=== PATIENT | female | born 1995 | race Caucasian/White ===

== ENCOUNTER 2022-10-01 02:08 | Emergency (ER) | payer BC, SELFPAY ==
[2022-10-01 02:12] VITALS: BP 161/96; PULSE 124; RESP 18; TEMP 37.5; O2SAT 95
--- NOTE | 2022-10-01 02:40 | ED.DENTAL ---
HPI - Dental/Oral General Chief complaint: Dental/Oral Stated complaint: tooth pain Time Seen by Provider: 10/01/22 02:14 Source: patient Mode of arrival: ambulatory Limitations: no limitations History of Present Illness HPI Narrative: 27-year-old female presents today with complaints of right lower dental pain that started about 6 days ago. Patient states it started at right facial pain she saw her primary care provider who said it was TMJ. Pain significantly got worse yesterday to today so she decided to come in. Patient states she is able to drink fluids and soft foods. Denies fever but states she did have some sweats. Denies nausea, vomiting, chills, body aches. Upon assessment patient heart rate 99, and oral temp was 98.9. Related Data Allergies Allergy/AdvReac Type Severity Reaction Status Date / Time No Known Allergies Allergy Unknown Verified 10/01/22 02:15 Review of Systems Review of Systems: CONSTITUTIONAL: Denies fever, chills, or sweats. EYES: Denies visual changes, redness, or discharge. ENT: Right lower dental pain. Denies rhinorrhea, congestion, sore throat, or otalgia. CARDIOVASCULAR: Denies chest pain, palpitations, or edema. RESPIRATORY: Denies cough or dyspnea. GASTROINTESTINAL: Denies abdominal pain, nausea, vomiting, or diarrhea. GENITOURINARY: Denies dysuria or hematuria. Exam Narrative: GENERAL: Well-appearing, well-nourished, and in no acute distress. HEAD: Normocephalic, atraumatic. EYES: PERRLA and EOMI. ENT: Nares clear, no rhinorrhea or epistaxis. Mucous membranes moist. Oropharynx without tonsillar hypertrophy exudate or other lesions. Bilateral TMs pearly busch nonbulging. Widespread dental decay multiple teeth of damage. Tooth 32 cracked with swelling noted to gums but no erythema or or fluctuance noted. Patient without Ludewig's angina or trismus. NECK: Supple. No adenopathy or masses. No carotid bruits or JVD CHEST: Clear to auscultation. No respiratory distress. No wheezes rales or rhonchi HEART: Regular rate and rhythm. No murmur heard. Normal peripheral pulses. Course Reevaluation(s) Reevaluation #1: Patient with improvement in pain and ability to open mouth. Patient states she is ready to be discharged home. Will discharge with p.o. antibiotics and short course of pain medication. Patient is to find a dentist to be evaluated for dental issues. Date: 10/01/22 Time: 03:33 Vital Signs Vital signs: Vital Signs Temperature 99.5 F 10/01/22 02:12 Pulse Rate 124 H 10/01/22 02:12 Respiratory Rate 18 10/01/22 02:12 Blood Pressure 161/96 H 10/01/22 02:12 Pulse Oximetry 95 10/01/22 02:12 Oxygen Delivery Room Air 10/01/22 02:12 Temperature 99.5 F 10/01/22 02:12 Pulse Rate 124 H 10/01/22 02:12 Respiratory Rate 18 10/01/22 02:12 Blood Pressure 161/96 H 10/01/22 02:12 Pulse Oximetry 95 10/01/22 02:12 Oxygen Delivery Room Air 10/01/22 02:12 MDM - Dental/Oral MDM Narrative Medical decision making narrative: 27-year-old female HPI as noted. No significant swelling noted to the face, no abscess noted on exam. Patient able to drink liquids and swallow own saliva. Patient denies any shortness of breath. No indication for imaging at this time. No abscess noted on exam. Will treat as outpatient with plan follow-up with dentist for further management. Differential Diagnosis Differential diagnosis: Likely gingival abscess, dental caries, toothache, dental abscess and fracture of tooth Medical Records Attestation: I reviewed the patient's medical records. Discharge Plan Discharge Clinical Impression: Toothache, Fracture of tooth Patient Disposition: Home, Self-Care Condition: Improved Instructions: Antibiotic Form, Toothache (ED) Additional Instructions: Take medications as prescribed. Please follow-up with a dentist so the main issues can be fixed. Return with any new or concerning symptoms. Prescriptions: New amoxici
[2022-10-01] MEDS: HYDROcodone/acetaminophen (*CRX) 7.5-325 MG TABLET 1 TAB PO (02:45)
[2022-10-01] MEDS: AMOXICILLIN/CLAVULANATE K 875-125 MG TAB 1 TABLET PO (02:49)
[2022-10-01 04:20] VITALS: PULSE 80; RESP 18; O2SAT 98
== END 2022-10-01 04:25 | disposition home or self-care (01) ==
PROVIDERS: Emergency Provider Nurse Practitioner Family; PCP Family Medicine Sports Medicine
DX: K03.81 Cracked tooth (principal); K02.9 Dental caries, unspecified
CPT/HCPCS: 99283; A9270; J1100

== ENCOUNTER 2022-10-02 20:17 | Inpatient (IN) | payer BC, SELFPAY ==
--- NOTE | ~2022-10-02 | CT_ITS ---
EXAMINATION: CT soft tissue neck w con DATE: 10/02/2022 22:25 INDICATION: Right face and jaw pain TECHNIQUE: Computed tomography (CT) of the neck was performed with 75 cc of Omnipaque 350 intravenous contrast. The dose-length product (DLP) was 533.08 mGy-cm. Automated exposure control and iterative reconstruction technique were employed. COMPARISON: None FINDINGS: There is asymmetric enlargement of the right parotid gland compared to the left with adjace nt inflammatory fat stranding. There are prominent right submandibular and cervical chain lymph nodes , likely reactive. No abscess is identified. The airway is widely patent. Multiple dental caries are noted. There is reversal of normal cervical lordosis. IMPRESSION: 1. Right parotitis Reviewed, dictated and finalized at location [facility]. [employer] IMPRESSION: 1. Right parotitis
[2022-10-02 20:31] VITALS: BP 167/92; PULSE 105; RESP 18; TEMP 37.2; O2SAT 96
--- NOTE | 2022-10-02 21:36 | ED.GENADULT ---
HPI - General Adult General Chief complaint: Unspecified Stated complaint: jaw pain Time Seen by Provider: 10/02/22 21:26 History of Present Illness HPI narrative: 27-year-old female here for evaluation of right sided dental pain and submandibular swelling for the past 3 days. Patient was initially seen by her PCP and was diagnosed with TMJ. She presented to the ED yesterday evening when she noticed her neck was swollen, she received steroids and pain meds with improvement of her symptoms and was discharged home. Patient did not start her antibiotics but comes back to the ED due to continued swelling and pain. Also notes trismus and difficulty swallowing due to pain. She has not yet established with a dentist. She is tolerating her secretions, denies shortness of breath, tongue swelling or fevers. Related Data Allergies Allergy/AdvReac Type Severity Reaction Status Date / Time No Known Allergies Allergy Unknown Verified 10/02/22 21:10 Review of Systems Review of Systems: Gen: Denies fevers or chills Eyes: Denies eye pain or visual change ENT: Reports swelling and dental pain. Respiratory: Denies shortness of breath or cough CV: Denies chest pain or palpitations GI: Denies abdominal pain nausea, emesis or diarrhea : denies burning, urgency, frequency or hematuria Musculoskeletal: Denies back pain or muscle pain Neuro: Denies numbness, tingling, weakness or focal weakness Skin: Denies rash Except as documented, all other systems reviewed and negative Exam Narrative: APPEARANCE: Uncomfortable appearing. Head: Normocephalic and atraumatic. EYES: PERRLA/EOMI, conjunctivae clear NOSE: No nasal drainage EARS: External ear normal in appearance THROAT: Trismus. Swelling at the area of the right lower molar around stensen's duct. Visible oropharynx shows a cracked right upper molar but visibility of entire oropharynx limited due to trismus. NECK: Marked bilateral submandibular swelling, R>L. RESPIRATORY: Airway patent, respirations nonlabored. Clear to auscultation bilaterally, no rales, rhonchi, wheezing. CARDIOVASCULAR: Regular rate and rhythm without murmurs, rubs, or gallops. ABDOMINAL: Normoactive bowel sounds. Soft, nontender, nondistended. No rebound tenderness or guarding. MUSCULOSKELETAL: Extremities are warm and well-perfused. Moves all extremities well. No edema. NEURO: Normal speech. No focal neurologic deficits. SKIN: Skin is warm and dry. No rashes. PSYCHIATRIC: Normal affect/mood. Course Vital Signs Vital signs: Vital Signs Temperature 98.9 F 10/02/22 20:31 Pulse Rate 105 H 10/02/22 20:31 Respiratory Rate 18 10/02/22 20:31 Blood Pressure 167/92 H 10/02/22 20:31 Pulse Oximetry 96 10/02/22 20:31 Oxygen Delivery Room Air 10/02/22 20:31 Temperature 98.9 F 10/02/22 20:31 Pulse Rate 105 H 10/02/22 20:31 Respiratory Rate 18 10/02/22 20:31 Blood Pressure 167/92 H 10/02/22 20:31 Pulse Oximetry 96 10/02/22 20:31 Oxygen Delivery Room Air 10/02/22 20:31 Medical Decision Making MDM Narrative Medical decision making narrative: Patient is a 27 year old female here for evaluation of right facial swelling, trismus, and dental pain for the past several days. Seen in ED upon symptom onset with initial improvement, thought to be due to dental caries, but failed outpatient PO meds due to returned trismus. Tachycardic, vital signs otherwise normal. White count is 17.0. Lactic is negative. Ct scan with parotitis on the right. Patient feeling improved after unasyn, steroids and fluids in the ED, but given that she has failed outpatient treatment favor inpatient admission at this time. Spoke with Dr. Fagan, ENT, agrees with plan for admission. Continue Unasyn, fluid support, heat, recommends re-imaging in 48 hours if no clinical improvement. Spoke with hospitalist who agrees with plan for admission. Patient updated and agreeable to plan. Vital Signs Vital Signs: Vital Signs Tempera
[2022-10-02] MEDS: DEXAMETHASONE SOD PHOS INJ 4 MG/ML VIAL IV PUSH (21:59)
[2022-10-02] MEDS: KETOROLAC 15 MG/ML VIAL (*BKC) IV PUSH (21:59)
[2022-10-02] MEDS: SODIUM CHLORIDE 0.9% IV 1,000 ML 999 ML IV CONT ×2 (21:59→23:47)
[2022-10-02 22:14] LABS: Basophils Percent Auto 0.2 % (0.2-1.2); Eosinophils Absolute Auto 0.1 K/mm3 (0-0.3); Eosinophils Percent Auto 0.4 % (0-4.4); Hematocrit 39.2 % (37.0-47.0); Hemoglobin 12.4 g/dL (12.0-15.0); Immature Granulocyte Absolute 0.05 K/mm3 (0.00-0.031); Immature Granulocyte Percent A 0.3 % (0-0.5); Lymphocytes Absolute Auto 3.16 K/mm3 (0.9-3.2); Lymphocytes Percent Auto 18.6 % (18.3-44.2); Mean Corpuscular HGB Conc 31.6 g/dl (32-36); Mean Corpuscular Hemoglobin 25.7 pg (26-34); Mean Corpuscular Volume 81.3 fl (80-100); Mean Platelet Volume 9.5 fl (7.4-10.4); Monocytes Percent Auto 5.9 % (2.6-8.5); Neutrophils Absolute Auto 12.7 K/mm3 (1.3-6.7); Neutrophils Percent Auto 74.6 % (45.5-73.1); Platelet Count Result 434 k/mm3 (150-375); Red Blood Count 4.82 M/mm3 (4.2-5.4)
[2022-10-02 22:15] LABS: Estimated CRCL calculation 111 ml/min; Estimated Glomerular Filt Rate > 60
[2022-10-02 22:20] LABS: Alanine Aminotransferase 20 U/L (6-35); Albumin Level 4.6 g/dL (3.5-5.1); Alkaline Phosphatase 120 U/L (38-126); Anion Gap 17 mmol/L (8-16); Aspartate Amino Transferase 28 U/L (14-36); Bilirubin,Total 0.5 mg/dL (0.2-1.3); Blood Urea Nitrogen 14 mg/dL (7-17); Calcium 9.5 mg/dL (8.4-10.2); Carbon Dioxide 26 mmol/L (22-30); Chloride 99 mmol/L (98-107); Estimated CRCL calculation 100 ml/min; Estimated Glomerular Filt Rate > 60; Glucose 112 mg/dL (65-110); Potassium 3.2 mmol/L (3.4-5.0); Sodium 142 mmol/L (137-145)
[2022-10-02 22:21] LABS: Lactic Acid Reflex 1.3 mmol/L (0.7-2.0)
[2022-10-02] MEDS: AMPICILLIN SULB 1.5 GM/NS 50ML 1.5 GM/50 ML VIAL IVPB (22:47)
--- NOTE | 2022-10-02 23:35 | PM.IMHP ---
H&P: HPI History of Present Illness Date/Time: 10/02/22 23:35 Chief Complaint: 27 years old female was complaining of right-sided neck swelling presented to the ER was treated with antibiotic and steroid and was sent home patient condition continued to worsen right-sided neck swelling continued to worsen associated with dull pain at the ER CT scan was done showed acute parotitis ENT was consulted recommended IV antibiotic IV steroid for 2 days then re-evaluate patient has leukocytosis blood culture was ordered patient will be admitted for evaluation and treatment of acute bacterial parotitis Review of Systems Review of Systems: Twelve system review was done negative except above Meds Home Medications and Allergies Home Medications Medication Instructions Recorded Confirmed Type amoxicillin 875 mg-potassium 1 tablet PO Q12H #20 tabs 10/01/22 Rx clavulanate 125 mg tablet hydrocodone 5 mg-acetaminophen 300 1 tablet PO Q4-6H PRN pain #7 tabs 10/01/22 Rx mg tablet Allergies Allergy/AdvReac Type Severity Reaction Status Date / Time No Known Allergies Allergy Unknown Verified 10/02/22 21:10 Vital Signs Vital Signs - 24 hr 10/02/22 20:31 Temperature 98.9 F Pulse Rate 105 H Respiratory Rate 18 Blood Pressure 167/92 H Pulse Oximetry 96 Oxygen Delivery Room Air Exam Narrative: GENERAL: Well appearing, well-nourished, non-toxic, in no acute distress. HEAD: Normocephalic, atraumatic. NECK: Right mandibular angle swelling and tenderness RESPIRATORY: Airway patent, respirations nonlabored. Clear to auscultation bilaterally, no rales, rhonchi, wheezing. CARDIOVASCULAR: Regular rate and rhythm without murmurs, rubs, or gallops. Peripheral pulses 2+ and equal bilaterally. ABDOMINAL: Soft, nontender, nondistended, no hepatosplenomegaly. Normoactive BS. MUSCULOSKELETAL: Moves all extremities. Strength/ROM intact without gross deformities or TTP. No edema. No calf tenderness. No chest wall tenderness palpation. SKIN: Warm, dry, normal color. No rashes. NEURO: A&O X3. Nonfocal. PSYCHIATRIC: Appropriate mood and affect. Normal interaction. H&P: Results Labs Labs: Short CBC 10/02/22 Range/Units 22:05 WBC 17.0 H (4.5-10.0) K/mm3 Hgb 12.4 (12.0-15.0) g/dL Hct 39.2 (37.0-47.0) % Plt Count 434 H (150-375) k/mm3 BMP 10/02/22 10/02/22 22:05 22:13 Sodium 142 Potassium 3.2 L Chloride 99 Carbon Dioxide 26 BUN 14 Creatinine 0.90 0.80 Glucose 112 H Calcium 9.5 Liver Function 10/02/22 Range/Units 22:05 Total Bilirubin 0.5 (0.2-1.3) mg/dL AST 28 (14-36) U/L ALT 20 (6-35) U/L Alkaline Phosphatase 120 (38-126) U/L Albumin 4.6 (3.5-5.1) g/dL Assessment and Plan Assessment and plan (1) Acute parotitis: Code(s): K11.21 - Acute sialoadenitis Status: Acute Assessment and Plan: Associated with sepsis Blood culture IV antibiotics IV steroid ENT consult Clear liquid diet Probably advance in a.m. (2) Dehydration: Code(s): E86.0 - Dehydration Status: Acute Assessment and Plan: IV fluid (3) Elevated blood pressure reading: Code(s): R03.0 - Elevated blood-pressure reading, without diagnosis of hypertension Status: Acute Assessment and Plan: P.r.n. hydralazine monitor (4) Hyperglycemia: Code(s): R73.9 - Hyperglycemia, unspecified Status: Acute Assessment and Plan: Most likely related to sepsis check hemoglobin A1c (5) Hypokalemia: Code(s): E87.6 - Hypokalemia Status: Acute Assessment and Plan: Replace
[2022-10-02] MEDS: POTASSIUM CHLORIDE 20 MEQ PACKET (FOR LIQUID) PO (23:47)
[2022-10-02] MEDS: POTASSIUM CHLORIDE 20 MEQ TABLET 40 MEQ PO (23:52)
[2022-10-03 00:16] LABS: Influenza A QL RT-PCR Negative (Negative); Influenza B QL RT-PCR Negative (Negative); SARS-CoV-2 RNA PCR Negative
[2022-10-03 02:15] LABS: Hemoglobin A1C 5.3 % (<5.7)
[2022-10-03 02:41] VITALS: BMI 44.9
[2022-10-03 02:55] LABS: Thyroid Stimulating Hormone Reflex 0.594 uIU/mL (0.465-4.68)
[2022-10-03 06:00] VITALS: BP 122/75; PULSE 84; RESP 16; TEMP 36.4; O2SAT 95
[2022-10-03] MEDS: ACETAMINOPHEN 325 MG TABLET 650 MG PO ×2 (07:02→11:55)
[2022-10-03 07:23] LABS: Basophils Percent Auto 0.1 % (0.2-1.2); Eosinophils Percent Auto 0.1 % (0-4.4); Hematocrit 38.4 % (37.0-47.0); Hemoglobin 11.9 g/dL (12.0-15.0); Immature Granulocyte Absolute 0.03 K/mm3 (0.00-0.031); Immature Granulocyte Percent A 0.2 % (0-0.5); Lymphocytes Percent Auto 16.2 % (18.3-44.2); Mean Corpuscular Hemoglobin 25.6 pg (26-34); Mean Corpuscular Volume 82.6 fl (80-100); Mean Platelet Volume 10.2 fl (7.4-10.4); Monocytes Absolute Auto 0.6 K/mm3 (0.1-0.6); Monocytes Percent Auto 4.3 % (2.6-8.5); Neutrophils Absolute Auto 10.3 K/mm3 (1.3-6.7); Neutrophils Percent Auto 79.1 % (45.5-73.1); Platelet Count Result 386 k/mm3 (150-375); Red Blood Count 4.65 M/mm3 (4.2-5.4); Red Cell Distribution Width 15.1 % (11.5-14.5)
[2022-10-03 07:37] LABS: Alanine Aminotransferase 17 U/L (6-35); Albumin Level 4.3 g/dL (3.5-5.1); Alkaline Phosphatase 102 U/L (38-126); Anion Gap 15 mmol/L (8-16); Aspartate Amino Transferase 20 U/L (14-36); Bilirubin,Total 0.4 mg/dL (0.2-1.3); Blood Urea Nitrogen 9 mg/dL (7-17); Calcium 9.3 mg/dL (8.4-10.2); Carbon Dioxide 27 mmol/L (22-30); Chloride 101 mmol/L (98-107); Estimated CRCL calculation 125 ml/min; Estimated Glomerular Filt Rate > 60; Glucose 115 mg/dL (65-110); Potassium 4.2 mmol/L (3.4-5.0); Sodium 143 mmol/L (137-145)
[2022-10-03] MEDS: AMPICILLIN SULB 3 GM/NS 100 ML 3 GM/100 ML VIAL IVPB ×3 (08:51→20:06)
[2022-10-03] MEDS: ENOXAPARIN 40 MG/0.4 ML SYRINGE SUB-Q (08:52)
[2022-10-03] MEDS: FAMOTIDINE 20 MG TABLET PO ×2 (09:16→20:05)
[2022-10-03] MEDS: DEXAMETHASONE SOD PHOS INJ 4 MG/ML VIAL IV PUSH ×2 (09:16→17:05)
--- NOTE | 2022-10-03 10:51 | PM.IMPN ---
Progress Note: A&P Assessment and Plan (1) Acute parotitis: Code(s): K11.21 - Acute sialoadenitis Status: Acute Assessment and Plan: Associated with sepsis Blood culture IV antibiotics IV steroid ENT consult Clear liquid diet Probably advance in a.m. (2) Dehydration: Code(s): E86.0 - Dehydration Status: Acute Assessment and Plan: IV fluid (3) Elevated blood pressure reading: Code(s): R03.0 - Elevated blood-pressure reading, without diagnosis of hypertension Status: Acute Assessment and Plan: P.r.n. hydralazine monitor (4) Hyperglycemia: Code(s): R73.9 - Hyperglycemia, unspecified Status: Acute Assessment and Plan: Most likely related to sepsis check hemoglobin A1c (5) Hypokalemia: Code(s): E87.6 - Hypokalemia Status: Acute Assessment and Plan: Replace Subjective Date/time seen: 10/03/22 10:51 no new complaints Exam Narrative: GENERAL: Well appearing, well-nourished, non-toxic, in no acute distress. HEAD: Normocephalic, atraumatic. NECK: Right mandibular angle swelling and tenderness RESPIRATORY: Airway patent, respirations nonlabored. Clear to auscultation bilaterally, no rales, rhonchi, wheezing. CARDIOVASCULAR: Regular rate and rhythm without murmurs, rubs, or gallops. Peripheral pulses 2+ and equal bilaterally. ABDOMINAL: Soft, nontender, nondistended, no hepatosplenomegaly. Normoactive BS. MUSCULOSKELETAL: Moves all extremities. Strength/ROM intact without gross deformities or TTP. No edema. No calf tenderness. No chest wall tenderness palpation. SKIN: Warm, dry, normal color. No rashes. NEURO: A&O X3. Nonfocal. PSYCHIATRIC: Appropriate mood and affect. Normal interaction. Objective Data Vital Signs Vital Signs: Vital Signs - 24 hr 10/02/22 20:31 10/03/22 06:00 10/03/22 10:22 Temperature 98.9 F 97.6 F Pulse Rate 105 H 84 Respiratory Rate 18 16 Blood Pressure 167/92 H 122/75 Pulse Oximetry 96 95 Oxygen Delivery Room Air Room Air Intake/Output Intake/Output: Intake & Output 09/30/22 10/01/22 10/02/22 10/03/22 23:59 23:59 23:59 23:59 Intake Total 1050 1700 Balance 1050 1700 Meds/Results Medications: Active Medications Generic Name Dose Route Start Last Admin Trade Name Freq PRN Reason Stop Dose Admin Acetaminophen 650 mg 10/02/22 23:26 10/03/22 07:02 Acetaminophen 325 Mg Tablet PO 650 mg Q6H PRN Administration Moderate pain Hydrocodone Bitart/Acetaminophen 1 tab 10/02/22 23:26 Hydrocodone/Acetaminophen (*Crx) 5-325 Mg Tablet PO Q6H PRN Pain Rated 4-6 Bisacodyl 5 mg 10/02/22 23:27 Bisacodyl 5 Mg Tablet Ec PO DAILY PRN Constipation Dexamethasone Sodium Phosphate 4 mg 10/03/22 09:00 10/03/22 09:16 Dexamethasone Sod Phos Inj 4 Mg/Ml Vial IV PUSH 10/05/22 17:01 4 mg BID ROGER Administration Enoxaparin Sodium 40 mg 10/03/22 09:00 10/03/22 08:52 Enoxaparin 40 Mg/0.4 Ml Syringe SUB-Q 40 mg DAILY ROGER Administration Famotidine 20 mg 10/03/22 09:00 10/03/22 09:16 Famotidine 20 Mg Tablet PO 20 mg Q12HR ROGER Administration Hydralazine HCl 10 mg 10/02/22 23:26 Hydralazine Hcl 20 Mg/Ml Vial IV PUSH Q6H PRN Hypertension Sodium Chloride 1,000 mls @ 100 mls/hr 10/02/22 23:30 10/03/22 07:24 Normal Saline Iv IV CONT Not Given .Q10H ROGER Vancomycin HCl 1,750 mg in 500 mls @ 250 mls/hr 10/03/22 12:00 Vancomycin 1,750 Mg/D5w 500 Ml IVPB Q12H ROGER Ampicillin Sodium/Sulbactam Sodium 3 gm in 100 mls @ 200 mls/hr 10/03/22 08:00 10/03/22 08:51 Unasyn 3 Gm/Ns 100 Ml IVPB 200 mls/hr Q6H ROGER Administration Morphine Sulfate 2 mg 10/02/22 23:26 Morphine Sulfate (*Crx) 2 Mg/Ml Inj IV PUSH Q4H PRN For pain 7-10 Ondansetron HCl 4 mg 10/02/22 23:26 Ondansetron Inj 4 Mg/2 Ml Vial IV PUSH Q6H PRN Nausea And Vomiting Polyethylene Glycol 1
[2022-10-03 14:00] VITALS: BP 140/85; PULSE 91; RESP 20; TEMP 36.3; O2SAT 98
[2022-10-03 22:28] VITALS: BP 130/87; PULSE 92; RESP 16; TEMP 36.4; O2SAT 98
[2022-10-04] MEDS: AMPICILLIN SULB 3 GM/NS 100 ML 3 GM/100 ML VIAL IVPB ×2 (02:00→09:05)
[2022-10-04 06:06] VITALS: BP 122/73; PULSE 82; RESP 18; TEMP 36.3; O2SAT 100
[2022-10-04] MEDS: SODIUM CHLORIDE 0.9% IV 1,000 ML 100 ML IV CONT (06:17)
[2022-10-04 08:41] LABS: Basophils Percent Auto 0.3 % (0.2-1.2); Eosinophils Percent Auto 0.1 % (0-4.4); Hematocrit 37.7 % (37.0-47.0); Immature Granulocyte Absolute 0.02 K/mm3 (0.00-0.031); Immature Granulocyte Percent A 0.2 % (0-0.5); Lymphocytes Absolute Auto 3.07 K/mm3 (0.9-3.2); Lymphocytes Percent Auto 29.7 % (18.3-44.2); Mean Corpuscular HGB Conc 31.8 g/dl (32-36); Mean Corpuscular Hemoglobin 25.8 pg (26-34); Mean Corpuscular Volume 80.9 fl (80-100); Mean Platelet Volume 9.6 fl (7.4-10.4); Monocytes Absolute Auto 0.6 K/mm3 (0.1-0.6); Monocytes Percent Auto 5.7 % (2.6-8.5); Neutrophils Absolute Auto 6.6 K/mm3 (1.3-6.7); Platelet Count Result 375 k/mm3 (150-375); Red Blood Count 4.66 M/mm3 (4.2-5.4); Red Cell Distribution Width 14.8 % (11.5-14.5); White Blood Count 10.3 K/mm3 (4.5-10.0)
--- NOTE | 2022-10-04 08:53 | PC.NURSE ---
Spoke with Dr Fagan, ENT for a consult and he stated there was no reason for him to see the patient due to not needing drained, he recommends antibiotics and warm compress. If patient hospitalist decides to drain contact him again. Notified Dr Taylor of update n consult.
[2022-10-04 08:59] LABS: Alanine Aminotransferase 16 U/L (6-35); Albumin Level 3.8 g/dL (3.5-5.1); Alkaline Phosphatase 84 U/L (38-126); Anion Gap 12 mmol/L (8-16); Aspartate Amino Transferase 21 U/L (14-36); Bilirubin,Total 0.2 mg/dL (0.2-1.3); Blood Urea Nitrogen 9 mg/dL (7-17); Carbon Dioxide 28 mmol/L (22-30); Chloride 101 mmol/L (98-107); Estimated CRCL calculation 144 ml/min; Estimated Glomerular Filt Rate > 60; Glucose 100 mg/dL (65-110); Potassium 3.5 mmol/L (3.4-5.0); Sodium 141 mmol/L (137-145)
[2022-10-04] MEDS: ACETAMINOPHEN 325 MG TABLET 650 MG PO (09:04)
[2022-10-04] MEDS: FAMOTIDINE 20 MG TABLET PO (09:05)
[2022-10-04] MEDS: DEXAMETHASONE SOD PHOS INJ 4 MG/ML VIAL IV PUSH (09:05)
[2022-10-04] MEDS: ENOXAPARIN 40 MG/0.4 ML SYRINGE SUB-Q (09:05)
--- NOTE | 2022-10-04 11:55 | PM.DS ---
DS: Admitting Diagnosis Discharge Date October 04, 2022 Admitting Diagnosis parotiditis DS: Discharge Diagnosis Discharge Diagnosis (1) Acute parotitis: Code(s): K11.21 - Acute sialoadenitis Status: Acute Assessment and Plan: Associated with sepsis Blood culture IV antibiotics IV steroid ENT consult Clear liquid diet Probably advance in a.m. (2) Dehydration: Code(s): E86.0 - Dehydration Status: Acute Assessment and Plan: IV fluid (3) Elevated blood pressure reading: Code(s): R03.0 - Elevated blood-pressure reading, without diagnosis of hypertension Status: Acute Assessment and Plan: P.r.n. hydralazine monitor (4) Hyperglycemia: Code(s): R73.9 - Hyperglycemia, unspecified Status: Acute Assessment and Plan: Most likely related to sepsis check hemoglobin A1c (5) Hypokalemia: Code(s): E87.6 - Hypokalemia Status: Acute Assessment and Plan: Replace DS: Summary Hospital Course Hospital Course: patient was admitted for parotiditis and found to have swollen parotid gland. ENT was consulted but said if there is nothing to drain on imaging then there is nothing further to do just to continue the antibiotics. Antibiotics Will be continued on discharge. Will continue clindamycin. she can follow-up with her primary care physician and ENT as need Time Spent with Patient Time attestation: Total time spent providing and/or coordinating discharge services: Exam Narrative: GENERAL: Well appearing, well-nourished, non-toxic, in no acute distress. HEAD: Normocephalic, atraumatic. NECK: Right mandibular angle swelling and tenderness - Much improved RESPIRATORY: Airway patent, respirations nonlabored. Clear to auscultation bilaterally, no rales, rhonchi, wheezing. CARDIOVASCULAR: Regular rate and rhythm without murmurs, rubs, or gallops. Peripheral pulses 2+ and equal bilaterally. ABDOMINAL: Soft, nontender, nondistended, no hepatosplenomegaly. Normoactive BS. MUSCULOSKELETAL: Moves all extremities. Strength/ROM intact without gross deformities or TTP. No edema. No calf tenderness. No chest wall tenderness palpation. SKIN: Warm, dry, normal color. No rashes. NEURO: A&O X3. Nonfocal. PSYCHIATRIC: Appropriate mood and affect. Normal interaction. DS: Data Data Completed and Pending Labs on day of discharge: Labs from last 24 hours 11/18/22 11/18/22 08:36 08:36 WBC 10.3 H RBC 4.66 Hgb 12.0 Hct 37.7 MCV 80.9 MCH 25.8 L MCHC 31.8 L RDW 14.8 H Plt Count 375 MPV 9.6 Immature Gran % (Auto) 0.2 Neut % (Auto) 64.0 Lymph % (Auto) 29.7 Cecil % (Auto) 5.7 Eos % (Auto) 0.1 Baso % (Auto) 0.3 Lymph # (Auto) 3.07 Cecil # (Auto) 0.6 Eos # (Auto) 0.0 Baso # (Auto) 0.0 Abs Immat Gran (auto) 0.02 Absolute Neuts (auto) 6.6 Absolute Nucleated RBC 0.0 Nucleated RBC % 0.0 Sodium 141 Potassium 3.5 Chloride 101 Carbon Dioxide 28 Anion Gap 12 BUN 9 Creatinine 0.60 L Estim Creat Clear Calc 144 Estimated GFR > 60 Glucose 100 Calcium 9.0 Total Bilirubin 0.2 AST 21 ALT 16 Alkaline Phosphatase 84 Total Protein 7.0 Albumin 3.8 Preliminary micro results at discharge 10/02/22 23:34 Blood Culture - Preliminary Blood 10/02/22 23:34 Blood Culture - Preliminary Blood Discharge Plan Discharge Attending physician on discharge: Jaron Taylor Consulting providers: Jaron Taylor Discharging Clinician: Jaron Taylor Patient Disposition: Home, Self-Care Activity: no preference Diet: as tolerated Patient Instructions: Antibiotic Form Stand Alone Forms: General Discharge Information Follow-up/Referrals: Saul,Moncho Purvis MD [Primary Care Provider] - Discharge Medications: New clindamycin HCl 300 mg capsule 300 mg PO Q6H 7 Days Qty: 28 0RF Continued hydroxyzine HCl 25 mg tablet 25
== END 2022-10-04 13:48 | disposition home or self-care (01) | DRG 872 ==
LOC: ANHED 23:19 → ANH3MEDSUR 10-03 00:59
PROVIDERS: Physician Assistant; Admitting Provider Internal Medicine; Emergency Provider Emergency Medicine; PCP Family Medicine Sports Medicine; Visit Provider Chiropractor
DX: A41.9 Sepsis, unspecified organism (principal); K11.21 Acute sialoadenitis; E86.0 Dehydration; R03.0 Elevated blood-pressure reading, without diagnosis of hypertension; R73.9 Hyperglycemia, unspecified; E87.6 Hypokalemia; Z20.822 Contact with and (suspected) exposure to COVID-19
CPT/HCPCS: 36415; 70491; 80053; 83036; 83605; 84443; 85025; 87040; 87636; 96361; 96365; 96375; 99283; 99285; A9270; G0378; J0295; J1100; J1650; J1885; J3370; J7030; Q9967